=== PATIENT | female | born 1965 | race Caucasian/White ===

== ENCOUNTER 2023-07-10 13:46 | Observation (INO) ==
[2023-07-10 14:55] LABS: BILIRUBIN,URINE NEGATIVE (NEGATIVE); BLOOD/HEMOGLOBIN,URINE NEGATIVE (NEGATIVE); GLUCOSE, URINE NEGATIVE (NEGATIVE); KETONES,URINE NEGATIVE (NEGATIVE); LEUKOCYTE ESTERASE ,URINE NEGATIVE (NEGATIVE); NITRITES,URINE NEGATIVE (NEGATIVE); PROTEIN,URINE NEGATIVE (NEGATIVE); UROBILINOGEN,URINE NORMAL (NORMAL)
[2023-07-10 14:56] LABS: APPEARANCE,URINE CLEAR (CLEAR); COLOR,URINE STRAW (YELLOW)
--- NOTE | 2023-07-10 15:11 | ED.ABDFE ---
HPI Time Seen Time Seen by Provider: 07/10/23 15:11 PCP Primary Care Physician: Maude Guzman Complaint Doctors Chief Complaint Comments: Right upper quad pain for 1 month with increased intensity over the last week. Chief Complaint:: Pt c/o 1 month of intermittnet pain in the RUQ that has become more constant over the past week. Pt states that the pain is spasms like in nature and occassionally it radiates around the right flank and across the top of the stomach. Pt has had nausea but denies vomiting. Denies fever. Self Treatment fo Chief Complaint: Pt had outpatient Hida Scan that showed EF 24% on 07/04/23. She is scheduled to see Dr. Juarez next week but couldn't wait until then to be seen. COVID-19 Coronavirus risk:travel/contact w/high risk person: No Has patient experienced Coronavirus symptoms: No Reviewed Nurses Notes Review: Yes Source History Provided: Patient Mode of arrival Mode of Arrival: Ambulatory Timing Onset of Chief Complaint: 07/10/23 Came on: Gradually Duration Since Onset: Constant How lon Severity Severity: Moderate PMH PMH Past Medical History: Yes Past Medical History: GERD Past Surgical History: Yes Surgical History: Appendectomy Past Surgical History Comment: tubal ligation Family History History of Family Medical Conditions: No Family Medical History: Heart Failure Social History Does patient currently use any type of tobacco product: No Have you used tobacco products in the last 12 months: No Type of Tobacco Use: vape Does any household member use tobacco: No Alcohol Use: None Do you use any recreational Drugs:: No Lives With: Family Lives Where: Home Travel Risk Coronavirus risk:travel/contact w/high risk person: No Has patient experienced Coronavirus symptoms: No Infectious screening Have you traveled outside the country in the last 6 months?: No Isolation: Standard ROS Review of Systems Constitutional: No Symptoms Reported and See HPI Eyes: No Symptoms Reported and See HPI ENTM: No Symptoms Reported Respiratoy: No Symptoms Reported Cardiovascular: No Symptoms Reported Gastrointestinal/Abdominal: See HPI, Abdominal Pain and Nausea; negative Vomiting Genitourinary: No Symptoms Reported Neurological: No Symptoms Reported Musculoskeletal: No Symptoms Reported Integumentary: No Symptoms Reported Hematologic/Lymphatic: No Symptoms Reported Endocrine: No Symptoms Reported Psychiatric: No Symptoms Reported All Other Systems: Reviewed and Negative PE Vital Signs Vitals: Vital Signs Temperature 98.4 F Pulse Rate 82 Respiratory Rate 20 Respiratory Rate 20 Blood Pressure 112/56 O2 Sat by Pulse Oximetry 94 General Limitations: No Limitations and Language Barrier General Appearance: Alert and In No Apparent Distress Head Head Exam: Normal Inspection Eyes Eye exam: Normal Appearance ENT ENT Exam: Normal Exam Neck Neck Exam: Normal Inspection Chest Chest Inspection: Normal Inspection Respiratory Respiratory Exam: Normal Lung Sounds Bilat Respiratory Exam: Bilateral: Clear to Auscultation Cardiovascular Cardiovascular Exam: Regular Rate and Normal Rhythm Abdominal Exam Abdominal Exam: Normal Bowel Sounds, Soft and Tenderness Abdominal Tenderness: RUQ Rectal Rectal Exam: Deferred Back Back Exam: Normal Inspection Extremeties Extremities Exam: Normal Inspection Neurologic Neurological Exam: Alert and Oriented X3 Psychiatric Psychiatric Exam: Normal Affect and Normal Mood Skin Skin Exam: Warm, Dry and Intact MDM Differential Diagnosis Differential Diagnosis- Considerations may include:: Cholcystitis, Cholelethiasis and Gastroenteritis COURSE Treatment Treatment: See Treatment while in ED Consultation Call Returned: 17:06 Consultation Comments: Dr. Gastelum here to see patient Education/Counseling Education/Counseling: Patient and Counseling Educated On: Treatment and Diagnosis ROR Labs Reviewed Laboratory Results Reviewed?: Yes 07/11/23 05:30 07/11/23 05:30 Laboratory: WBC 7.5 X10^3/uL (3.6-10.0) 07/10/23 15:50 RBC 5.10 X10^6/uL (3.5-5.4) 07/10/23 15:50 Hgb 13.4 g/dL (12.0-16.0) 07/10/23 15:50 Hct 40.6 % (36.0-47.0) 07/10/23 15:50 MCV 79.5 fL (80.0-100.0) L 07/10/23 15:50 MCH 26.2 pg (27.0-34.0) L 07/10/23 15:50 MCHC 33.0 g/dL (33.0-35.0) 07/10/23 15:50 RDW 13.7 % (11.6-16.5) 07/10/23 15:50 Plt Count 316 X10^3/uL (150.0-450.0) 07/10/23 15:50 MPV 8.1 fL (7.4-11.0) 07/10/23 15:50 Neut % (Auto) 65.8 % (42.0-75.0) 07/10/23 15:50 Lymph % (Auto) 22.9 % (21.0-51.0) 07/10/23 15:50 [place] % (Auto) 8.0 % (0.0-13.0) 07/10/23 15:50 Eos % (Auto) 2.1 % (0.9-2.9) 07/10/23 15:50 Baso % (Auto) 1.2 % (0.2-1.0) H 07/10/23 15:50 Neut # (Auto) 4.9 x10^3/uL (2.2-4.8) H 07/10/23 15:50 Lymph # (Auto) 1.7 X10^3/uL (1.3-2.9) 07/10/23 15:50 [place] # (Auto) 0.6 x10^3/uL (0.3-0.8) 07/10/23 15:50 Eos # (Auto) 0.2 x10^3/uL (0.0-0.2) 07/10/23 15:50 Baso # (Auto) 0.1 X10^3/uL (0.0-0.1) 07/10/23 15:50 Absolute Nucleated RBC 0.0 /100WBC 07/10/23 15:50 Sodium 139 mmol/L (136-145) 07/10/23 15:50 Corrected Sodium TNP 07/10/23 15:50 Potassium 4.4 mmol/L (3.5-5.1) 07/10/23 15:50 Chloride 104 mmol/L (98-107) 07/10/23 15:50 Carbon Dioxide 31.9 mmol/L (21-32) 07/10/23 15:50 BUN 10 mg/dL (7-18) 07/10/23 15:50 Creatinine 0.79 mg/dL (0.55-1.02) 07/10/23 15:50 Est GFR (MDRD) Af Amer > 60 (>60) 07/10/23 15:50 Est GFR (MDRD) Non-Af > 60 (>60) 07/10/23 15:50 Glucose 95 mg/dL (65-99) 07/10/23 15:50 Calcium 8.6 mg/dL (8.5-10.1) 07/10/23 15:50 Corrected Calcium TNP 07/10/23 15:50 Total Bilirubin 0.40 mg/dL (0.2-1.0) 07/10/23 15:50 AST 18 Units/L (15-37) 07/10/23 15:50 ALT 29 Units/L (12-78) 07/10/23 15:50 Alkaline Phosphatase 80 Units/L (46-116) 07/10/23 15:50 Total Protein 7.2 g/dL (6.4-8.2) 07/10/23 15:50 Albumin 3.8 g/dL (3.4-5.0) 07/10/23 15:50 Globulin 3.4 g/dL (2.5-4.5) 07/10/23 15:50 Albumin/Globulin Ratio 1.1 Ratio (1.1-2.1) 07/10/23 15:50 Amylase 38 Units/L (25-115) 07/10/23 15:50 Lipase 19 Units/L (16-77) 07/10/23 15:50 Specimen Type Clean catch urine 07/10/23 14:48 Urine Color Straw (YELLOW) 07/10/23 14:48 Urine Appearance Clear (CLEAR) 07/10/23 14:48 Urine pH 6.0 (5.0 - 8.0) 07/10/23 14:48 Ur Specific [place] 1.015 (1.000-1.030) 07/10/23 14:48 Urine Protein Negative (NEGATIVE) 07/10/23 14:48 Urine Glucose (UA) Negative (NEGATIVE) 07/10/23 14:48 Urine Ketones Negative (NEGATIVE) 07/10/23 14:48 Urine Blood Negative (NEGATIVE) 07/10/23 14:48 Urine Nitrite Negative (NEGATIVE) 07/10/23 14:48 Urine Bilirubin Negative (NEGATIVE) 07/10/23 14:48 Urine Urobilinogen Normal (NORMAL) 07/10/23 14:48 Ur Leukocyte Esterase Negative (NEGATIVE) 07/10/23 14:48 Opioid Opioid Risk Tool Age (Santino box if 16-45): No History of Preadolescent Sexual Abuse: No Total: 0 Total Score Risk Category: Low Risk Copyright: Gage LESTER predicting aberrant behaviors Management Risks, benefits, and alternatives of opioids discussed: Yes Prescription drug monitoring program results: PDMP reviewed and no concerns identified Discharge Plan Diagnosis Discharge Problem: Abdominal pain, Cholecystitis Discharge Plan Patient Disposition: 09 ADMITTED INPATIENT Condition: Stable Prescription drug monitoring program results: PDMP reviewed and no concerns identified Discharge Comment: Pt will be admitted for further evaluation ADDITIONAL NOTES Additional Notes Additional Notes: The patient will be admitted to Dr. Gastelum for further observation.
[2023-07-10] MEDS ORDERED: MORPHINE SULFATE INJ 4 MG ONE (15:45)
[2023-07-10] MEDS ORDERED: NS 1,000 ML IV 1,000 ML ONE ×2 (15:46→17:39)
[2023-07-10] MEDS ORDERED: ZOFRAN INJ 4 MG VIAL ONE ×2 (15:46→20:04)
[2023-07-10 16:02] LABS: BASOPHILS # (AUTO) 0.1 X10^3/uL (0.0-0.1); BASOPHILS % (AUTO) 1.2 % (0.2-1.0); EOSINOPHILS # (AUTO) 0.2 x10^3/uL (0.0-0.2); EOSINOPHILS % (AUTO) 2.1 % (0.9-2.9); HEMATOCRIT 40.6 % (36.0-47.0); HEMOGLOBIN 13.4 g/dL (12.0-16.0); LYMPHOCYTES # (AUTO) 1.7 X10^3/uL (1.3-2.9); LYMPHOCYTES % (AUTO) 22.9 % (21.0-51.0); MEAN CORPUSCULAR HEMOGLOBIN 26.2 pg (27.0-34.0); MEAN CORPUSCULAR VOLUME 79.5 fL (80.0-100.0); MEAN PLATELET VOLUME 8.1 fL (7.4-11.0); MONOCYTES # (AUTO) 0.6 x10^3/uL (0.3-0.8); NEUTROPHILS # (AUTO) 4.9 x10^3/uL (2.2-4.8); NEUTROPHILS % (AUTO) 65.8 % (42.0-75.0); PLATELET COUNT 316 X10^3/uL (150.0-450.0); RED CELL DISTRIBUTION WIDTH 13.7 % (11.6-16.5); WHITE BLOOD COUNT 7.5 X10^3/uL (3.6-10.0)
[2023-07-10] MEDS ORDERED: MORPHINE SULFATE INJ 4 MG IVP ONE (16:03)
[2023-07-10] MEDS ORDERED: ZOFRAN INJ 4 MG VIAL IVP ONE (16:03)
[2023-07-10] MEDS: NS 1,000 ML IV 1,000 ML IV ONE ×2 (16:06→17:50)
[2023-07-10 16:11] LABS: ALANINE AMINOTRANSFERASE 29 Units/L (12-78); ALBUMIN 3.8 g/dL (3.4-5.0); ALKALINE PHOSPHATASE 80 Units/L (46-116); AMYLASE 38 Units/L (25-115); ASPARTATE AMINO TRANSFERASE 18 Units/L (15-37); BLOOD UREA NITROGEN 10 mg/dL (7-18); CALCIUM 8.6 mg/dL (8.5-10.1); CARBON DIOXIDE 31.9 mmol/L (21-32); CHLORIDE 104 mmol/L (98-107); CREATININE 0.79 mg/dL (0.55-1.02); GLUCOSE 95 mg/dL (65-99); LIPASE 19 Units/L (16-77); POTASSIUM 4.4 mmol/L (3.5-5.1); SODIUM 139 mmol/L (136-145); TOTAL PROTEIN 7.2 g/dL (6.4-8.2); eGFR NON BLACK RACES > 60 (>60)
[2023-07-10] MEDS ORDERED: ZOSYN VIAL 3.375 GRAMS 3.375 G in NS 100 ML IV 100 ML IV ONE (17:35)
[2023-07-10] MEDS ORDERED: ZOSYN VIAL 3.375 GRAMS IV ONE ×2 (17:39→22:10)
[2023-07-10] MEDS ORDERED: NS 100 ML IV 100 ML ONE ×2 (17:40→22:10)
[2023-07-10 18:27] VITALS: BMI 28.5
[2023-07-10] MEDS ORDERED: DILAUDID INJ ONE (20:04)
[2023-07-10] MEDS: DILAUDID INJ IVP PRN (20:12)
[2023-07-10] MEDS: ZOFRAN INJ 4 MG VIAL IVP PRN (20:13)
[2023-07-10] MEDS: ZOSYN VIAL 3.375 GRAMS 3.375 G in NS 100 ML IV 100 ML IV SCH ×2 (20:14→22:24)
[2023-07-11] MEDS ORDERED: D5 1/2 NS 1,000 ML 1,000 ML IV ONE (00:57)
[2023-07-11] MEDS: D5 1/2 NS 1,000 ML 1,000 ML IV SCH ×3 (00:58→16:10)
[2023-07-11] MEDS: ZOFRAN INJ 4 MG VIAL IVP PRN ×4 (01:32→18:52)
[2023-07-11] MEDS: DILAUDID INJ IVP PRN ×6 (01:58→22:34)
[2023-07-11] MEDS: ZOSYN VIAL 3.375 GRAMS 3.375 G in NS 100 ML IV 100 ML IV SCH ×3 (05:37→21:23)
[2023-07-11 06:26] LABS: BASOPHILS # (AUTO) 0.1 X10^3/uL (0.0-0.1); BASOPHILS % (AUTO) 2.2 % (0.2-1.0); EOSINOPHILS # (AUTO) 0.2 x10^3/uL (0.0-0.2); EOSINOPHILS % (AUTO) 3.1 % (0.9-2.9); HEMATOCRIT 37.2 % (36.0-47.0); HEMOGLOBIN 12.3 g/dL (12.0-16.0); LYMPHOCYTES % (AUTO) 33.9 % (21.0-51.0); MEAN CORPUSCULAR HEMOGLOBIN 26.5 pg (27.0-34.0); MEAN CORPUSCULAR VOLUME 80.3 fL (80.0-100.0); MEAN PLATELET VOLUME 8.5 fL (7.4-11.0); MONOCYTES # (AUTO) 0.7 x10^3/uL (0.3-0.8); MONOCYTES % (AUTO) 11.4 % (0.0-13.0); NEUTROPHILS # (AUTO) 2.9 x10^3/uL (2.2-4.8); NEUTROPHILS % (AUTO) 49.4 % (42.0-75.0); PLATELET COUNT 259 X10^3/uL (150.0-450.0); RED BLOOD COUNT 4.63 X10^6/uL (3.5-5.4); RED CELL DISTRIBUTION WIDTH 13.8 % (11.6-16.5); WHITE BLOOD COUNT 5.9 X10^3/uL (3.6-10.0)
[2023-07-11 06:41] LABS: ALANINE AMINOTRANSFERASE 24 Units/L (12-78); ALBUMIN 2.9 g/dL (3.4-5.0); ALKALINE PHOSPHATASE 63 Units/L (46-116); AMYLASE 34 Units/L (25-115); ASPARTATE AMINO TRANSFERASE 19 Units/L (15-37); BLOOD UREA NITROGEN 11 mg/dL (7-18); CALCIUM 7.7 mg/dL (8.5-10.1); CARBON DIOXIDE 29.6 mmol/L (21-32); CHLORIDE 107 mmol/L (98-107); COR CA(FOR HYPOALB) 8.6 mg/dL (8.5-10.1); CREATININE 0.79 mg/dL (0.55-1.02); GLUCOSE 103 mg/dL (65-99); LIPASE 18 Units/L (16-77); POTASSIUM 3.8 mmol/L (3.5-5.1); SODIUM 141 mmol/L (136-145); TOTAL PROTEIN 5.7 g/dL (6.4-8.2); eGFR NON BLACK RACES > 60 (>60)
[2023-07-11] MEDS ORDERED: FENTANYL VIAL INJ 100 mcg ONE ×2 (10:39→12:38)
[2023-07-11] MEDS ORDERED: VERSED ONE (10:39)
[2023-07-11] MEDS ORDERED: BRIDION ONE (10:40)
[2023-07-11] MEDS ORDERED: DIPRIVAN VIAL 20 ML ONE (10:40)
[2023-07-11] MEDS ORDERED: TORADOL 30 MG VIAL ONE (10:40)
[2023-07-11] MEDS ORDERED: ZEMURON 100 MG VIAL ONE (10:40)
[2023-07-11] MEDS ORDERED: ZOFRAN INJ 4 MG VIAL ONE ×2 (10:40→13:39)
[2023-07-11] MEDS ORDERED: PEPCID 20 MG VIAL ONE (10:54)
[2023-07-11] MEDS ORDERED: DECADRON INJ ONE (10:54)
[2023-07-11] MEDS ORDERED: OFIRMEV IV 1000 MG VIAL 1,000 MG/100 ML VIAL IV ONE (10:54)
[2023-07-11] MEDS ORDERED: BACTROBAN TOPICAL OINT ONE (11:39)
[2023-07-11] MEDS ORDERED: LR 1,000 ML IV 1,000 ML IV ONE (11:56)
[2023-07-11] MEDS ORDERED: NS 100 ML IV 100 ML ONE (11:56)
[2023-07-11] MEDS ORDERED: ANCEF VIAL 1 GRAM ONE (11:56)
[2023-07-11] MEDS ORDERED: SUPRANE ONE (12:10)
[2023-07-11] MEDS ORDERED: BARHEMSYS INJ IVP PRN (13:33)
[2023-07-11] MEDS ORDERED: REGLAN INJ 10 MG VIAL IVP PRN (13:33)
[2023-07-11] MEDS ORDERED: BENADRYL INJ 50 MG VIAL IVP PRN (13:33)
[2023-07-11] MEDS ORDERED: ZOFRAN INJ 4 MG VIAL IVP PRN (13:33)
[2023-07-11] MEDS ORDERED: DILAUDID INJ ONE (13:40)
[2023-07-11] MEDS ORDERED: MAALOX or MYLANTA PO ONE (23:30)
[2023-07-12 00:16] VITALS: RESP 20
[2023-07-12] MEDS: D5 1/2 NS 1,000 ML 1,000 ML IV SCH ×2 (01:16→12:15)
[2023-07-12] MEDS: DILAUDID INJ IVP PRN ×2 (01:59→08:16)
[2023-07-12] MEDS: ZOSYN VIAL 3.375 GRAMS 3.375 G in NS 100 ML IV 100 ML IV SCH (06:07)
[2023-07-12 06:48] LABS: BASOPHILS % (AUTO) 0.3 % (0.2-1.0); EOSINOPHILS % (AUTO) 0.1 % (0.9-2.9); HEMATOCRIT 37.1 % (36.0-47.0); HEMOGLOBIN 12.2 g/dL (12.0-16.0); LYMPHOCYTES # (AUTO) 1.1 X10^3/uL (1.3-2.9); LYMPHOCYTES % (AUTO) 7.6 % (21.0-51.0); MEAN CORPUSCULAR HEMOGLOBIN 26.2 pg (27.0-34.0); MEAN CORPUSCULAR HGB CONC 32.8 g/dL (33.0-35.0); MEAN CORPUSCULAR VOLUME 79.9 fL (80.0-100.0); MEAN PLATELET VOLUME 9.1 fL (7.4-11.0); MONOCYTES # (AUTO) 0.7 x10^3/uL (0.3-0.8); NEUTROPHILS # (AUTO) 12.5 x10^3/uL (2.2-4.8); PLATELET COUNT 296 X10^3/uL (150.0-450.0); RED BLOOD COUNT 4.64 X10^6/uL (3.5-5.4); RED CELL DISTRIBUTION WIDTH 13.6 % (11.6-16.5); WHITE BLOOD COUNT 14.3 X10^3/uL (3.6-10.0)
[2023-07-12 06:54] LABS: ALANINE AMINOTRANSFERASE 68 Units/L (12-78); ALBUMIN 3.2 g/dL (3.4-5.0); ALKALINE PHOSPHATASE 71 Units/L (46-116); ASPARTATE AMINO TRANSFERASE 57 Units/L (15-37); BLOOD UREA NITROGEN 10 mg/dL (7-18); CALCIUM 8.2 mg/dL (8.5-10.1); CARBON DIOXIDE 28.7 mmol/L (21-32); CHLORIDE 104 mmol/L (98-107); COR CA(FOR HYPOALB) 8.8 mg/dL (8.5-10.1); COR NA(FOR HYPERGLY) 139 mmol/L (136-145); CREATININE 0.82 mg/dL (0.55-1.02); GLUCOSE 131 mg/dL (65-99); POTASSIUM 3.8 mmol/L (3.5-5.1); SODIUM 138 mmol/L (136-145); TOTAL PROTEIN 6.3 g/dL (6.4-8.2); eGFR NON BLACK RACES > 60 (>60)
[2023-07-12] MEDS ORDERED: NORCO 5/325 MG TAB PO ONE (08:04)
[2023-07-12] MEDS: ZOFRAN INJ 4 MG VIAL IVP PRN (08:16)
[2023-07-12 11:30] VITALS: BP 110/60; PULSE 73; TEMP 98.1; O2SAT 99
== END 2023-07-12 11:20 | disposition home or self-care (01) ==
LOC: ER 13:46 → U 13:46 → MED/SURG 07-11 00:56
PROVIDERS: ADMIT Surgery; ATTEND Surgery
DX: K21.9 Gastro-esophageal reflux disease without esophagitis; R10.11 Right upper quadrant pain; K80.00 Calculus of gallbladder with acute cholecystitis without obstruction

== ENCOUNTER 2024-05-20 13:05 | Observation (INO) ==
[2024-05-20 13:40] VITALS: BMI 23.8
[2024-05-20 15:38] LABS: BILIRUBIN,URINE NEGATIVE (NEGATIVE); BLOOD/HEMOGLOBIN,URINE NEGATIVE (NEGATIVE); COLOR,URINE YELLOW (YELLOW); GLUCOSE, URINE NEGATIVE (NEGATIVE); KETONES,URINE NEGATIVE (NEGATIVE); LEUKOCYTE ESTERASE ,URINE 1+ (NEGATIVE); NITRITES,URINE NEGATIVE (NEGATIVE); PROTEIN,URINE NEGATIVE (NEGATIVE); UROBILINOGEN,URINE NORMAL (NORMAL)
[2024-05-20 15:39] LABS: APPEARANCE,URINE CLEAR (CLEAR)
[2024-05-20 15:42] LABS: BACTERIA,URINE 1+ /HPF (NEGATIVE); RBC,URINE NONE SEEN /HPF (0-3); SQUAMOUS EPITHELIAL CELL,UR MODERATE /HPF (NEGATIVE)
--- NOTE | 2024-05-20 15:45 | DR.URINEF ---
HPI Time Seen Time Seen by Provider: 05/20/24 15:43 PCP Primary Care Physician: Chari Rosenberg Chief Complaint:: Patient states that she has been being treated for diverticulitis, and has been on two antibiotics for about 12 days now. She states that starting yesterday she started having abdominal pain and loose stools. She states that the pain is unbearable, and her urine has a strong odor. COVID-19 Coronavirus risk:travel/contact w/high risk person: No Has patient experienced Coronavirus symptoms: No Source History Provided: Patient Mode of Arrival Mode of Arrival: Ambulatory Timing Onset of Chief Complaint: 05/19/24 PMH PMH Past Medical History: Yes Past Medical History: GERD Past Surgical History: Yes Surgical History: Appendectomy, Cholecystectomy and REIN[employer]EMENT [employer] Surgery Family History History of Family Medical Conditions: Yes Family Medical History: Heart Failure Social History Does patient currently use any type of tobacco product: No Have you used tobacco products in the last 12 months: No Type of Tobacco Use: None Does any household member use tobacco: No Alcohol Use: None Do you use any recreational Drugs:: No Lives With: Family Lives Where: Home Travel Risk Coronavirus risk:travel/contact w/high risk person: No Has patient experienced Coronavirus symptoms: No Infectious screening In the last 2 months have you had wt loss of >10#?: NO Have you had fever, night sweats or hemotysis?: No Have you traveled outside the country in the last 6 months?: No Isolation: Standard PE Vital Signs Vitals: Vital Signs Temperature 98.7 F Pulse Rate 82 Respiratory Rate 18 Respiratory Rate 18 Blood Pressure [Right Arm] 121/67 Blood Pressure 121/67 O2 Sat by Pulse Oximetry 95 ROR Labs Reviewed 05/20/24 16:30 05/20/24 16:30 Laboratory: WBC 6.6 X10^3/uL (3.6-10.0) 05/20/24 16:30 RBC 5.20 X10^6/uL (3.5-5.4) 05/20/24 16:30 Hgb 14.2 g/dL (12.0-16.0) 05/20/24 16:30 Hct 42.6 % (36.0-47.0) 05/20/24 16:30 MCV 82.0 fL (80.0-100.0) 05/20/24 16:30 MCH 27.3 pg (27.0-34.0) 05/20/24 16:30 MCHC 33.3 g/dL (33.0-35.0) 05/20/24 16:30 RDW 13.8 % (11.6-16.5) 05/20/24 16:30 Plt Count 281 X10^3/uL (150.0-450.0) 05/20/24 16:30 MPV 8.3 fL (7.4-11.0) 05/20/24 16:30 Neut % (Auto) 59.6 % (42.0-75.0) 05/20/24 16:30 Lymph % (Auto) 25.8 % (21.0-51.0) 05/20/24 16:30 [place] % (Auto) 11.1 % (0.0-13.0) 05/20/24 16:30 Eos % (Auto) 2.3 % (0.9-2.9) 05/20/24 16:30 Baso % (Auto) 1.2 % (0.2-1.0) H 05/20/24 16:30 Neut # (Auto) 3.9 x10^3/uL (2.2-4.8) 05/20/24 16:30 Lymph # (Auto) 1.7 X10^3/uL (1.3-2.9) 05/20/24 16:30 [place] # (Auto) 0.7 x10^3/uL (0.3-0.8) 05/20/24 16:30 Eos # (Auto) 0.2 x10^3/uL (0.0-0.2) 05/20/24 16:30 Baso # (Auto) 0.1 X10^3/uL (0.0-0.1) 05/20/24 16:30 Absolute Nucleated RBC 0.1 /100WBC 05/20/24 16:30 Sodium 138 mmol/L (136-145) 05/20/24 16:30 Corrected Sodium TNP 05/20/24 16:30 Potassium 4.6 mmol/L (3.5-5.1) 05/20/24 16:30 Chloride 103 mmol/L (98-107) 05/20/24 16:30 Carbon Dioxide 30.1 mmol/L (21-32) 05/20/24 16:30 BUN 11 mg/dL (7-18) 05/20/24 16:30 Creatinine 0.82 mg/dL (0.55-1.02) 05/20/24 16:30 Est GFR (MDRD) Af Amer > 60 (>60) 05/20/24 16:30 Est GFR (MDRD) Non-Af > 60 (>60) 05/20/24 16:30 Glucose 96 mg/dL (65-99) 05/20/24 16:30 Calcium 8.5 mg/dL (8.5-10.1) 05/20/24 16:30 Corrected Calcium TNP 05/20/24 16:30 Total Bilirubin 0.50 mg/dL (0.2-1.0) 05/20/24 16:30 AST 25 Units/L (15-37) 05/20/24 16:30 ALT 33 Units/L (12-78) 05/20/24 16:30 Alkaline Phosphatase 73 Units/L (46-116) 05/20/24 16:30 Total Protein 7.2 g/dL (6.4-8.2) 05/20/24 16:30 Albumin 3.9 g/dL (3.4-5.0) 05/20/24 16:30 Globulin 3.3 g/dL (2.5-4.5) 05/20/24 16:30 Albumin/Globulin Ratio 1.2 Ratio (1.1-2.1) 05/20/24 16:30 Amylase 43 Units/L (25-115) 05/20/24 16:30 Lipase 28 Units/L (16-77) 05/20/24 16:30 Specimen Type Clean catch urine 05/20/24 15:25 Urine Color Yellow (YELLOW) 05/20/24 15:25 Urine Appearance Clear (CLEAR) 05/20/24 15:25 Urine pH 6.0 (5.0 - 8.0) 05/20/24 15:25 Ur Specific [place] 1.015 (1.000-1.030) 05/20/24 15:25 Urine Protein Negative (NEGATIVE) 05/20/24 15:25 Urine Glucose (UA) Negative (NEGATIVE) 05/20/24 15:25 Urine Ketones Negative (NEGATIVE) 05/20/24 15:25 Urine Blood Negative (NEGATIVE) 05/20/24 15:25 Urine Nitrite Negative (NEGATIVE) 05/20/24 15:25 Urine Bilirubin Negative (NEGATIVE) 05/20/24 15:25 Urine Urobilinogen Normal (NORMAL) 05/20/24 15:25 Ur Leukocyte Esterase 1+ (NEGATIVE) 05/20/24 15:25 Urine RBC None seen /HPF (0-3) 05/20/24 15:25 Urine WBC 3-5 /HPF (0-5) 05/20/24 15:25 Ur Squamous Epith Cells Moderate /HPF (NEGATIVE) 05/20/24 15:25 Urine Bacteria 1+ /HPF (NEGATIVE) 05/20/24 15:25 Ur Culture Indicated? No/not indicated 05/20/24 15:25 Opioid Opioid Risk Tool Age (Santino box if 16-45): No History of Preadolescent Sexual Abuse: No Total: 0 Total Score Risk Category: Low Risk Copyright: [place] predicting aberrant behaviors Discharge Plan Diagnosis Discharge Problem: Abdominal pain Discharge Plan Patient Disposition: 01 HOME, SELF-CARE Condition: Stable Prescriptions: No Action tizanidine 2 mg tablet 2 mg PO QPM PRN ondansetron HCl 4 mg tablet 4 mg PO Q8H PRN metronidazole 500 mg tablet 500 mg PO TID Rx Instructions: x 14 days - started on 05/08/24 ciprofloxacin HCl 500 mg tablet 500 mg PO BID Rx Instructions: x 14 days - started on 05/08/24 estradiol 0.5 mg tablet 0.5 mg PO QDAY celecoxib 100 mg capsule 100 mg PO QDAY dicyclomine 10 mg capsule 10 mg PO TID solifenacin 10 mg tablet 10 mg PO QDAY diclofenac sodium 1 % gel 4 g TOPICAL QID Discharge Comment: RETURN TO ER IF WORSE. Health Concerns: Post Hospitalization: new medications and changes needed to prevent readmission or further decline. Pt educated and given instructions on all concerns. Plan of Treatment: Continue with present treatment and follow up plan. Pt is to keep follow up appointment as instructed and take medications as ordered. Orders to Discharge Patient Discharge Orders: Discharge (Routine); Ordered 05/20/24 Ordered By: LILLIAN ALCARAZ Transfer (Routine); Ordered 05/20/24 Ordered By: LILLIAN ALCARAZ Follow ups/Referrals Follow ups/Referrals: BRIDGER ROBIN [Primary Care Provider] - 1 day Instructions Instructions: Abdominal Pain, Adult Stand Alone Forms: Post Hospital Follow Up Care
[2024-05-20] MEDS: NS 1,000 ML IV 1,000 ML IV ONE (16:28)
[2024-05-20] MEDS: PEPCID 20 MG VIAL 20 MG in NS 50 ML IV 50 ML IV ONE (16:28)
[2024-05-20] MEDS: DEMEROL INJ IVP ONE (16:29)
[2024-05-20] MEDS: ZOFRAN INJ 4 MG VIAL IVP ONE (16:29)
[2024-05-20 16:40] LABS: BASOPHILS # (AUTO) 0.1 X10^3/uL (0.0-0.1); BASOPHILS % (AUTO) 1.2 % (0.2-1.0); EOSINOPHILS # (AUTO) 0.2 x10^3/uL (0.0-0.2); EOSINOPHILS % (AUTO) 2.3 % (0.9-2.9); HEMATOCRIT 42.6 % (36.0-47.0); HEMOGLOBIN 14.2 g/dL (12.0-16.0); LYMPHOCYTES # (AUTO) 1.7 X10^3/uL (1.3-2.9); LYMPHOCYTES % (AUTO) 25.8 % (21.0-51.0); MEAN CORPUSCULAR HEMOGLOBIN 27.3 pg (27.0-34.0); MEAN CORPUSCULAR HGB CONC 33.3 g/dL (33.0-35.0); MEAN PLATELET VOLUME 8.3 fL (7.4-11.0); MONOCYTES # (AUTO) 0.7 x10^3/uL (0.3-0.8); MONOCYTES % (AUTO) 11.1 % (0.0-13.0); NEUTROPHILS # (AUTO) 3.9 x10^3/uL (2.2-4.8); NEUTROPHILS % (AUTO) 59.6 % (42.0-75.0); PLATELET COUNT 281 X10^3/uL (150.0-450.0); RED CELL DISTRIBUTION WIDTH 13.8 % (11.6-16.5); WHITE BLOOD COUNT 6.6 X10^3/uL (3.6-10.0)
[2024-05-20 17:14] LABS: ALANINE AMINOTRANSFERASE 33 Units/L (12-78); ALBUMIN 3.9 g/dL (3.4-5.0); ALKALINE PHOSPHATASE 73 Units/L (46-116); AMYLASE 43 Units/L (25-115); ASPARTATE AMINO TRANSFERASE 25 Units/L (15-37); BLOOD UREA NITROGEN 11 mg/dL (7-18); CALCIUM 8.5 mg/dL (8.5-10.1); CARBON DIOXIDE 30.1 mmol/L (21-32); CHLORIDE 103 mmol/L (98-107); CREATININE 0.82 mg/dL (0.55-1.02); GLUCOSE 96 mg/dL (65-99); LIPASE 28 Units/L (16-77); POTASSIUM 4.6 mmol/L (3.5-5.1); SODIUM 138 mmol/L (136-145); TOTAL PROTEIN 7.2 g/dL (6.4-8.2); eGFR NON BLACK RACES > 60 (>60)
--- NOTE | 2024-05-20 17:43 | CT ---
EXAM: ABDOMEN/PELVIS W/O CON HISTORY: being treated for diverticulitis, and has been on two antibiotics for about 12 days now. She states t hat starting yesterday she started having abdominal pain and loose stools.; COMPARISON: 06/28/2023. TECHNIQUE: Nonenhanced spiral CT imaging was performed through the abdomen and pelvis and axial, coronal, and sa gittal CT images were generated. FINDINGS: The lungs are clear without effusion. Heart size is normal. The liver is normal. The gallbladder h as been removed. Pancreas, spleen, adrenal glands are normal. Kidneys are normal in size without ma ss, stone, or hydronephrosis. Urinary bladder is normal. Uterus is normal. There is no adnexal mas s. Stomach and small bowel are normal. There is no evidence for appendicitis. Large bowel loops ar e unremarkable. There is liny-ap-lsuagiuu systemic atherosclerosis. There is no worrisome bone harlan ow lesion. IMPRESSION: Nothing acute. No diverticulitis identified. No colonic wall thickening to suggest infectious colit is. THIS IS AN ELECTRONICALLY VERIFIED FINAL REPORT 05/20/2024 5:39 PM - Electronically signed by Yasmany Milton MD
[2024-05-20] MEDS ORDERED: FLAGYL IV PREMIX 500 MG BAG 500 MG/100 ML BAG IV ONE (19:07)
[2024-05-20] MEDS: DILAUDID INJ IVP PRN (20:35)
[2024-05-20] MEDS: PROTONIX INJ 40 MG VIAL IVP SCH (20:35)
[2024-05-20] MEDS: NS 1,000 ML IV 1,000 ML IV SCH (20:49)
[2024-05-20] MEDS: FLAGYL IV PREMIX 500 MG BAG 500 MG/100 ML BAG IV SCH (21:37)
[2024-05-20] MEDS: ZOFRAN INJ 4 MG VIAL IVP PRN (21:59)
[2024-05-21 05:12] LABS: BASOPHILS # (AUTO) 0.1 X10^3/uL (0.0-0.1); BASOPHILS % (AUTO) 1.1 % (0.2-1.0); EOSINOPHILS # (AUTO) 0.2 x10^3/uL (0.0-0.2); EOSINOPHILS % (AUTO) 2.9 % (0.9-2.9); HEMATOCRIT 37.3 % (36.0-47.0); HEMOGLOBIN 12.6 g/dL (12.0-16.0); LYMPHOCYTES % (AUTO) 37.6 % (21.0-51.0); MEAN CORPUSCULAR HEMOGLOBIN 27.6 pg (27.0-34.0); MEAN CORPUSCULAR HGB CONC 33.8 g/dL (33.0-35.0); MEAN CORPUSCULAR VOLUME 81.6 fL (80.0-100.0); MEAN PLATELET VOLUME 8.5 fL (7.4-11.0); MONOCYTES # (AUTO) 0.6 x10^3/uL (0.3-0.8); MONOCYTES % (AUTO) 11.3 % (0.0-13.0); NEUTROPHILS # (AUTO) 2.5 x10^3/uL (2.2-4.8); NEUTROPHILS % (AUTO) 47.1 % (42.0-75.0); PLATELET COUNT 219 X10^3/uL (150.0-450.0); RED BLOOD COUNT 4.57 X10^6/uL (3.5-5.4); RED CELL DISTRIBUTION WIDTH 13.6 % (11.6-16.5); WHITE BLOOD COUNT 5.3 X10^3/uL (3.6-10.0)
[2024-05-21 05:31] LABS: ALANINE AMINOTRANSFERASE 25 Units/L (12-78); ALBUMIN 2.9 g/dL (3.4-5.0); ALKALINE PHOSPHATASE 56 Units/L (46-116); AMYLASE 32 Units/L (25-115); ASPARTATE AMINO TRANSFERASE 24 Units/L (15-37); BLOOD UREA NITROGEN 8 mg/dL (7-18); CALCIUM 7.8 mg/dL (8.5-10.1); CARBON DIOXIDE 26.9 mmol/L (21-32); CHLORIDE 106 mmol/L (98-107); COR CA(FOR HYPOALB) 8.7 mg/dL (8.5-10.1); GLUCOSE 91 mg/dL (65-99); LIPASE 17 Units/L (16-77); SODIUM 138 mmol/L (136-145); TOTAL PROTEIN 5.5 g/dL (6.4-8.2); eGFR NON BLACK RACES > 60 (>60)
--- NOTE | 2024-05-21 16:54 | DR.PROGNOT ---
HOSPITAL PROGRESS NOTE Progress Note for Day of: Progress Note Date: 05/21/24 Chief Complaint Chief Complaint: Still complaining of diffuse abdominal pain more on the left side and epigastrium, no more diarrhea today. CBC and CHEM profile were normal. CAT scan no evidence of acute process. Past Medical Family Social History Past Med/Fam/Surg Hx: No changes since H&P Allergies: Allergies meloxicam [From Mobic] Allergy (Mild, Verified 07/20/23 15:10) Vital Signs Vital Signs: Vital Signs Temperature 98.1 F Temperature 96.8 F Pulse Rate [Left Radial] 57 Pulse Rate [Left Radial] 57 Respiratory Rate 19 Respiratory Rate 19 Respiratory Rate 20 Respiratory Rate 18 Blood Pressure [Left Arm] 117/55 Blood Pressure [Left Arm] 101/57 O2 Sat by Pulse Oximetry 99 O2 Sat by Pulse Oximetry 99 Physical Exam Oriented: Normal Eyes: Normal Ear: Normal Nose: Normal Throat: Normal Respiratory: Normal Cardiovascular: Normal : Normal GI:Auscultation: Normal GI: Tenderness: Other (Diffuse abdominal tenderness more in the epigastrium, upper abdomen and left lower quadrant.) Speech Pattern: Clear and Appropriate Laboratory and Diagnostics 05/21/24 04:58 05/21/24 04:58 Labs: Laboratory WBC 5.3 X10^3/uL (3.6-10.0) 05/21/24 04:58 RBC 4.57 X10^6/uL (3.5-5.4) 05/21/24 04:58 Hgb 12.6 g/dL (12.0-16.0) 05/21/24 04:58 Hct 37.3 % (36.0-47.0) 05/21/24 04:58 MCV 81.6 fL (80.0-100.0) 05/21/24 04:58 MCH 27.6 pg (27.0-34.0) 05/21/24 04:58 MCHC 33.8 g/dL (33.0-35.0) 05/21/24 04:58 RDW 13.6 % (11.6-16.5) 05/21/24 04:58 Plt Count 219 X10^3/uL (150.0-450.0) 05/21/24 04:58 MPV 8.5 fL (7.4-11.0) 05/21/24 04:58 Neut % (Auto) 47.1 % (42.0-75.0) 05/21/24 04:58 Lymph % (Auto) 37.6 % (21.0-51.0) 05/21/24 04:58 [place] % (Auto) 11.3 % (0.0-13.0) 05/21/24 04:58 Eos % (Auto) 2.9 % (0.9-2.9) 05/21/24 04:58 Baso % (Auto) 1.1 % (0.2-1.0) H 05/21/24 04:58 Neut # (Auto) 2.5 x10^3/uL (2.2-4.8) 05/21/24 04:58 Lymph # (Auto) 2.0 X10^3/uL (1.3-2.9) 05/21/24 04:58 [place] # (Auto) 0.6 x10^3/uL (0.3-0.8) 05/21/24 04:58 Eos # (Auto) 0.2 x10^3/uL (0.0-0.2) 05/21/24 04:58 Baso # (Auto) 0.1 X10^3/uL (0.0-0.1) 05/21/24 04:58 Absolute Nucleated RBC 0.1 /100WBC 05/21/24 04:58 Sodium 138 mmol/L (136-145) 05/21/24 04:58 Corrected Sodium TNP 05/21/24 04:58 Potassium 4.0 mmol/L (3.5-5.1) 05/21/24 04:58 Chloride 106 mmol/L (98-107) 05/21/24 04:58 Carbon Dioxide 26.9 mmol/L (21-32) 05/21/24 04:58 BUN 8 mg/dL (7-18) 05/21/24 04:58 Creatinine 0.80 mg/dL (0.55-1.02) 05/21/24 04:58 Est GFR (MDRD) Af Amer > 60 (>60) 05/21/24 04:58 Est GFR (MDRD) Non-Af > 60 (>60) 05/21/24 04:58 Glucose 91 mg/dL (65-99) 05/21/24 04:58 Calcium 7.8 mg/dL (8.5-10.1) L 05/21/24 04:58 Corrected Calcium 8.7 mg/dL (8.5-10.1) 05/21/24 04:58 Total Bilirubin 0.60 mg/dL (0.2-1.0) 05/21/24 04:58 AST 24 Units/L (15-37) 05/21/24 04:58 ALT 25 Units/L (12-78) 05/21/24 04:58 Alkaline Phosphatase 56 Units/L (46-116) 05/21/24 04:58 Total Protein 5.5 g/dL (6.4-8.2) L 05/21/24 04:58 Albumin 2.9 g/dL (3.4-5.0) L 05/21/24 04:58 Globulin 2.6 g/dL (2.5-4.5) 05/21/24 04:58 Albumin/Globulin Ratio 1.1 Ratio (1.1-2.1) 05/21/24 04:58 Amylase 32 Units/L (25-115) 05/21/24 04:58 Lipase 17 Units/L (16-77) 05/21/24 04:58 Specimen Type Clean catch urine 05/20/24 15:25 Urine Color Yellow (YELLOW) 05/20/24 15:25 Urine Appearance Clear (CLEAR) 05/20/24 15:25 Urine pH 6.0 (5.0 - 8.0) 05/20/24 15:25 Ur Specific [place] 1.015 (1.000-1.030) 05/20/24 15:25 Urine Protein Negative (NEGATIVE) 05/20/24 15:25 Urine Glucose (UA) Negative (NEGATIVE) 05/20/24 15:25 Urine Ketones Negative (NEGATIVE) 05/20/24 15:25 Urine Blood Negative (NEGATIVE) 05/20/24 15:25 Urine Nitrite Negative (NEGATIVE) 05/20/24 15:25 Urine Bilirubin Negative (NEGATIVE) 05/20/24 15:25 Urine Urobilinogen Normal (NORMAL) 05/20/24 15:25 Ur Leukocyte Esterase 1+ (NEGATIVE) 05/20/24 15:25 Urine RBC None seen /HPF (0-3) 09/09/24 15:25 Urine WBC 3-5 /HPF (0-5) 05/20/24 15:25 Ur Squamous Epith Cells Moderate /HPF (NEGATIVE) 05/20/24 15:25 Urine Bacteria 1+ /HPF (NEGATIVE) 05/20/24 15:25 Ur Culture Indicated? No/not indicated 05/20/24 15:25 Assessment and Plan 1: Recurrent diverticulitis, on IV antibiotics and IV fluid. 2: Colitis with diarrhea. To obtain stool for C. difficile and stool culture. Problem Patient Problems: Patient Problems (Updated 05/20/24 @ 18:11 by LILLIAN ALCARAZ) Abdominal pain (Acute) R10.9
[2024-05-21 18:21] LABS: CRYPTOSPORIDIUM PARVUM ANTIGEN NEGATIVE (NEGATIVE); GIARDIA LAMBLIA ANTIGEN NEGATIVE (NEGATIVE)
[2024-05-21] MEDS: MAALOX or MYLANTA PO PRN (20:00)
[2024-05-22 05:20] LABS: BASOPHILS % (AUTO) 0.8 % (0.2-1.0); EOSINOPHILS # (AUTO) 0.2 x10^3/uL (0.0-0.2); EOSINOPHILS % (AUTO) 2.7 % (0.9-2.9); HEMATOCRIT 36.4 % (36.0-47.0); HEMOGLOBIN 12.3 g/dL (12.0-16.0); LYMPHOCYTES # (AUTO) 1.5 X10^3/uL (1.3-2.9); LYMPHOCYTES % (AUTO) 26.5 % (21.0-51.0); MEAN CORPUSCULAR HEMOGLOBIN 27.5 pg (27.0-34.0); MEAN CORPUSCULAR HGB CONC 33.7 g/dL (33.0-35.0); MEAN CORPUSCULAR VOLUME 81.6 fL (80.0-100.0); MEAN PLATELET VOLUME 8.6 fL (7.4-11.0); MONOCYTES # (AUTO) 0.5 x10^3/uL (0.3-0.8); MONOCYTES % (AUTO) 9.3 % (0.0-13.0); NEUTROPHILS # (AUTO) 3.5 x10^3/uL (2.2-4.8); NEUTROPHILS % (AUTO) 60.7 % (42.0-75.0); PLATELET COUNT 216 X10^3/uL (150.0-450.0); RED BLOOD COUNT 4.46 X10^6/uL (3.5-5.4); RED CELL DISTRIBUTION WIDTH 13.3 % (11.6-16.5); WHITE BLOOD COUNT 5.8 X10^3/uL (3.6-10.0)
[2024-05-22 05:34] LABS: ALANINE AMINOTRANSFERASE 24 Units/L (12-78); ALBUMIN 2.7 g/dL (3.4-5.0); ALKALINE PHOSPHATASE 58 Units/L (46-116); ASPARTATE AMINO TRANSFERASE 21 Units/L (15-37); BLOOD UREA NITROGEN 5 mg/dL (7-18); CALCIUM 7.7 mg/dL (8.5-10.1); CARBON DIOXIDE 29.2 mmol/L (21-32); CHLORIDE 104 mmol/L (98-107); COR CA(FOR HYPOALB) 8.7 mg/dL (8.5-10.1); CREATININE 0.83 mg/dL (0.55-1.02); GLUCOSE 99 mg/dL (65-99); POTASSIUM 3.6 mmol/L (3.5-5.1); SODIUM 138 mmol/L (136-145); TOTAL PROTEIN 5.3 g/dL (6.4-8.2); eGFR NON BLACK RACES > 60 (>60)
[2024-05-22] MEDS ORDERED: CONSULT PHARMACY - POTASSIUM & MAGNESIUM XX SCH ×2 (06:00→12:00)
[2024-05-22] MEDS: K-DUR TAB 20 MEQ PO SCH (08:04)
[2024-05-22] MEDS: NS 1,000 ML IV 1,000 ML with MAGNESIUM SULFATE 50% INJ VIAL 1 G IV SCH (12:49)
[2024-05-22] MEDS: NS 500 ML IV 500 ML IV ONE (14:50)
[2024-05-22] MEDS: DIPRIVAN VIAL 20 ML ONE (15:24)
[2024-05-22] MEDS: ZOFRAN INJ 4 MG VIAL ONE (17:36)
[2024-05-23 05:36] LABS: BASOPHILS # (AUTO) 0.2 X10^3/uL (0.0-0.1); BASOPHILS % (AUTO) 3.3 % (0.2-1.0); EOSINOPHILS # (AUTO) 0.2 x10^3/uL (0.0-0.2); EOSINOPHILS % (AUTO) 3.1 % (0.9-2.9); HEMATOCRIT 34.7 % (36.0-47.0); HEMOGLOBIN 11.9 g/dL (12.0-16.0); LYMPHOCYTES # (AUTO) 1.3 X10^3/uL (1.3-2.9); LYMPHOCYTES % (AUTO) 23.7 % (21.0-51.0); MEAN CORPUSCULAR HEMOGLOBIN 27.8 pg (27.0-34.0); MEAN CORPUSCULAR HGB CONC 34.4 g/dL (33.0-35.0); MEAN CORPUSCULAR VOLUME 80.8 fL (80.0-100.0); MEAN PLATELET VOLUME 8.4 fL (7.4-11.0); MONOCYTES # (AUTO) 0.4 x10^3/uL (0.3-0.8); MONOCYTES % (AUTO) 8.2 % (0.0-13.0); NEUTROPHILS # (AUTO) 3.3 x10^3/uL (2.2-4.8); NEUTROPHILS % (AUTO) 61.7 % (42.0-75.0); PLATELET COUNT 212 X10^3/uL (150.0-450.0); RED BLOOD COUNT 4.29 X10^6/uL (3.5-5.4); RED CELL DISTRIBUTION WIDTH 13.2 % (11.6-16.5); WHITE BLOOD COUNT 5.4 X10^3/uL (3.6-10.0)
[2024-05-23 05:39] LABS: BLOOD UREA NITROGEN 5 mg/dL (7-18); CALCIUM 7.9 mg/dL (8.5-10.1); CARBON DIOXIDE 27.9 mmol/L (21-32); CHLORIDE 105 mmol/L (98-107); CREATININE 0.75 mg/dL (0.55-1.02); GLUCOSE 97 mg/dL (65-99); POTASSIUM 3.8 mmol/L (3.5-5.1); SODIUM 139 mmol/L (136-145); eGFR NON BLACK RACES > 60 (>60)
[2024-05-23] MEDS ORDERED: CONSULT PHARMACY - POTASSIUM & MAGNESIUM XX SCH (06:00)
[2024-05-23 06:02] LABS: ALANINE AMINOTRANSFERASE 25 Units/L (12-78); ALBUMIN 2.9 g/dL (3.4-5.0); ALKALINE PHOSPHATASE 50 Units/L (46-116); ASPARTATE AMINO TRANSFERASE 23 Units/L (15-37); COR CA(FOR HYPOALB) 8.8 mg/dL (8.5-10.1); MAGNESIUM 2.1 mg/dL (2.0-2.9); TOTAL PROTEIN 5.4 g/dL (6.4-8.2)
[2024-05-23] MEDS: K-DUR TAB 20 MEQ PO SCH (08:16)
[2024-05-23 09:01] VITALS: BP 126/55; PULSE 59; TEMP 97.3; O2SAT 95
[2024-05-23] MEDS: NORCO 5/325 MG TAB PO ONE (10:34)
[2024-05-23 10:35] VITALS: RESP 20
== END 2024-05-23 10:45 | disposition home or self-care (01) ==
LOC: MED/SURG 13:05 → ER 13:05 → MED/SURG 19:58
PROVIDERS: ADMIT Surgery; ATTEND Surgery